=== PATIENT | female | born 1995 | race Caucasian/White ===

== ENCOUNTER 2019-12-13 14:46 | Observation (INO) ==
[2019-12-13] MEDS ORDERED: 0.9 % Sodium Chloride 1,000 ML IVC STA ×2 (14:56→17:18)
[2019-12-13] MEDS ORDERED: Ondansetron 4 MG/2 ML VIAL IVP STA (14:58)
[2019-12-13 15:27] LABS: Eosinophils % 0.1 %; Red Cell Distribution Width 12.2 % (11.5-14.5)
[2019-12-13 15:29] LABS: Basophils # 0.1 K/mcL (0.0-0.2); Basophils % 0.2 %; Hematocrit 47.2 % (35.3-44.9); Hemoglobin 15.5 g/dL (11.5-15.4); Immature Granulocytes % 3.7 % (0-4); Lymphocytes # 2.1 K/mcL (0.6-4.6); Lymphocytes % 7.4 %; Mean Corpuscular HGB Conc 32.8 g/dL (31.6-35.5); Mean Corpuscular Hemoglobin 30.8 pg (28.0-33.3); Mean Corpuscular Volume 93.8 fL (83.0-100.0); Mean Platelet Volume 9.7 fL (9.4-12.4); Monocytes # 1.3 K/mcL (0.0-1.3); Monocytes % 4.7 %; Neutrophils # 23.9 K/mcL (1.6-8.9); Platelet Count 389 K/mcL (140-400); Red Blood Count 5.03 M/mcL (3.82-4.97); Segmented Neutrophils % 83.9 %; White Blood Count 28.5 K/mcL (4.3-11.1)
[2019-12-13 15:44] LABS: VBG HCO3 5 mEq/L (21-27); VBG PCO2 18 mmHg (41-51); VBG PH 7.09 pH Units (7.32-7.42); VBG PO2 116 mmHg (25-50)
[2019-12-13 15:56] LABS: Platelet Estimate Normal (Normal)
[2019-12-13 16:42] LABS: Bilirubin,Urine Negative (Negative); Blood,Urine Trace (Negative); Clarity,Urine Clear (Clear); Color,Urine Colorless (Yellow); Glucose,Urine (UA) >=1000 mg/dL (Normal); Ketones,Urine >150 mg/dL (Negative); Leukocyte Esterase,Urine Negative (Negative); Mucus,Urine Few per lpf (None-Few); Nitrite,Urine Negative (Negative); PH,Urine 5.5 pH Units (5.0-8.0); Protein,Urine Trace mg/dL (Neg-Trace); RBC,Urine 0-3 per hpf (0-3); Specific Gravity,Urine 1.026 (1.010-1.025); Squamous Epithelial Cell,Urine Few per hpf (None-Few); Urobilinogen,Urine Normal (Normal); WBC,Urine 0-3 per hpf (0-3)
[2019-12-13 17:08] LABS: Alanine Aminotransferase 24 Units/L (7-52); Albumin 4.9 g/dL (3.5-5.7); Albumin/Globulin Ratio 1.5 (1.1-2.2); Alkaline Phosphatase 90 Units/L (34-104); Aspartate Amino Transferase 27 Units/L (13-39); BUN/Creatinine Ratio 24 (6-26); Bilirubin,Total 0.5 mg/dL (0.3-1.0); Blood Urea Nitrogen 28 mg/dL (6-20); Calcium 10.4 mg/dL (8.6-10.3); Chloride 95 mEq/L (98-107); Globulin 3.3 g/dL (2.4-3.5); Glucose 579 mg/dL (70-105); Magnesium 2.1 mg/dL (1.6-2.6); Osmolality,Calculated 300 (280-300); Potassium 5.8 mEq/L (3.5-5.1); Sodium 129 mEq/L (136-145); Thyroid Stimulating Hormone 1.025 mcIU/mL (0.340-5.600); Total Protein 8.2 g/dL (6.4-8.9); Troponin I < 0.03 ng/mL (< 0.04); eGFR For African Americans > 60 (> 60); eGFR For Non-African Americans 57 (> 60)
[2019-12-13] MEDS ORDERED: Metoclopramide 10 MG/2 ML VIAL IVP ONE (17:11)
[2019-12-13] MEDS ORDERED: Insulin Human Regular 100 UNIT in 0.9 % Sodium Chloride 100 ML IVC SCH ×2 (17:15→18:01)
[2019-12-13] MEDS ORDERED: Naloxone 0.4 MG/ML INJ IVP PRN ×2 (17:33→18:02)
[2019-12-13] MEDS ORDERED: *HR* Dextrose 50 % in Water (Vial) 50 ML VIAL IVP PRN (17:35)
[2019-12-13] MEDS ORDERED: D5% in 0.45% NACL 1,000 ML IVC PRN (17:35)
[2019-12-13] MEDS ORDERED: Insulin Regular, Human 100 UNIT/ML IV PRN (17:35)
[2019-12-13 17:38] LABS: Carbon Dioxide < 4 mEq/L (23-29)
[2019-12-13] MEDS ORDERED: Ondansetron 4 MG/2 ML VIAL IVP PRN (18:02)
[2019-12-13] MEDS ORDERED: *HR* Promethazine 25 MG/ML VIAL IVP PRN (18:02)
[2019-12-13] MEDS ORDERED: Sodium Bicarbonate 75 MEQ in 0.45 % Sodium Chloride 1,000 ML IVC SCH (18:05)
[2019-12-13 19:35] LABS: BUN/Creatinine Ratio 23 (6-26); Blood Urea Nitrogen 25 mg/dL (6-20); Calcium 9.2 mg/dL (8.6-10.3); Carbon Dioxide 5 mEq/L (23-29); Chloride 103 mEq/L (98-107); Glucose 502 mg/dL (70-105); Osmolality,Calculated 305 (280-300); Sodium 134 mEq/L (136-145); eGFR For African Americans > 60 (> 60); eGFR For Non-African Americans > 60 (> 60)
[2019-12-13] MEDS: 0.9 % Sodium Chloride 1,000 ML IVC SCH ×3 (21:01→23:37)
[2019-12-13] MEDS: Acetaminophen 325 MG TABLET PO PRN (21:01)
[2019-12-13] MEDS: *HR* Heparin 5,000 UNIT/ML VIAL SQ SCH (21:03)
[2019-12-13 23:51] LABS: BUN/Creatinine Ratio 19 (6-26); Blood Urea Nitrogen 17 mg/dL (6-20); Calcium 7.2 mg/dL (8.6-10.3); Carbon Dioxide 7 mEq/L (23-29); Chloride 113 mEq/L (98-107); Glucose 212 mg/dL (70-105); Osmolality,Calculated 290 (280-300); Potassium 4.4 mEq/L (3.5-5.1); Sodium 136 mEq/L (136-145); eGFR For African Americans > 60 (> 60); eGFR For Non-African Americans > 60 (> 60)
[2019-12-14] MEDS: D5% in 0.45% NACL w KCl 20 MEQ/1,000 ML MLS IVC PRN ×4 (00:16→13:34)
[2019-12-14] MEDS: 0.9 % Sodium Chloride 1,000 ML IVC SCH ×5 (00:26→04:34)
[2019-12-14] MEDS: Calcium Gluconate 1gm/50mL 1 GM/50 ML BAG IVPB SCH ×6 (00:38→09:17)
[2019-12-14 04:14] LABS: BUN/Creatinine Ratio 17 (6-26); Blood Urea Nitrogen 13 mg/dL (6-20); Calcium 7.6 mg/dL (8.6-10.3); Carbon Dioxide 9 mEq/L (23-29); Chloride 115 mEq/L (98-107); Glucose 235 mg/dL (70-105); Osmolality,Calculated 286 (280-300); Potassium 4.4 mEq/L (3.5-5.1); Sodium 134 mEq/L (136-145); eGFR For African Americans > 60 (> 60); eGFR For Non-African Americans > 60 (> 60)
[2019-12-14 05:28] LABS: Basophils % 0.2 %; Eosinophils # 0.2 K/mcL (0.0-0.6); Eosinophils % 0.9 %; Hematocrit 32.4 % (35.3-44.9); Immature Granulocytes % 0.8 % (0-4); Lymphocytes # 2.6 K/mcL (0.6-4.6); Lymphocytes % 14.4 %; Mean Corpuscular HGB Conc 33.6 g/dL (31.6-35.5); Mean Corpuscular Hemoglobin 30.8 pg (28.0-33.3); Mean Corpuscular Volume 91.5 fL (83.0-100.0); Mean Platelet Volume 9.2 fL (9.4-12.4); Monocytes % 5.3 %; Platelet Count 250 K/mcL (140-400); Red Blood Count 3.54 M/mcL (3.82-4.97); Red Cell Distribution Width 12.7 % (11.5-14.5); Segmented Neutrophils % 78.4 %; White Blood Count 17.8 K/mcL (4.3-11.1)
[2019-12-14 05:33] LABS: Monocytes # 0.9 K/mcL (0.0-1.3)
[2019-12-14 05:34] LABS: Hemoglobin 10.9 g/dL (11.5-15.4)
[2019-12-14 05:36] LABS: VBG HCO3 14 mEq/L (21-27); VBG PCO2 28 mmHg (41-51); VBG PH 7.31 pH Units (7.32-7.42); VBG PO2 197 mmHg (25-50)
[2019-12-14] MEDS: *HR* Heparin 5,000 UNIT/ML VIAL SQ SCH ×3 (05:36→20:10)
[2019-12-14 05:44] LABS: BUN/Creatinine Ratio 15 (6-26); Blood Urea Nitrogen 11 mg/dL (6-20); Calcium 7.7 mg/dL (8.6-10.3); Carbon Dioxide 13 mEq/L (23-29); Chloride 114 mEq/L (98-107); Glucose 243 mg/dL (70-105); Magnesium 1.5 mg/dL (1.6-2.6); Osmolality,Calculated 289 (280-300); Potassium 3.7 mEq/L (3.5-5.1); Sodium 136 mEq/L (136-145); eGFR For African Americans > 60 (> 60); eGFR For Non-African Americans > 60 (> 60)
[2019-12-14 05:48] LABS: Platelet Estimate Normal (Normal)
[2019-12-14] MEDS ORDERED: Insulin Human Regular 100 UNIT in 0.9 % Sodium Chloride 100 ML IVC SCH (06:15)
[2019-12-14] MEDS: Insulin Human Regular 100 UNIT in 0.9 % Sodium Chloride 100 ML IVC SCH ×3 (06:29→10:18)
[2019-12-14 07:17] LABS: BUN/Creatinine Ratio 13 (6-26); Blood Urea Nitrogen 9 mg/dL (6-20); Calcium 7.5 mg/dL (8.6-10.3); Carbon Dioxide 12 mEq/L (23-29); Chloride 115 mEq/L (98-107); Glucose 211 mg/dL (70-105); Osmolality,Calculated 285 (280-300); Potassium 4.2 mEq/L (3.5-5.1); Sodium 135 mEq/L (136-145); eGFR For African Americans > 60 (> 60); eGFR For Non-African Americans > 60 (> 60)
[2019-12-14 10:44] LABS: BUN/Creatinine Ratio 11 (6-26); Blood Urea Nitrogen 7 mg/dL (6-20); Calcium 8.5 mg/dL (8.6-10.3); Carbon Dioxide 14 mEq/L (23-29); Chloride 117 mEq/L (98-107); Glucose 83 mg/dL (70-105); Osmolality,Calculated 279 (280-300); Potassium 3.4 mEq/L (3.5-5.1); Sodium 136 mEq/L (136-145); eGFR For African Americans > 60 (> 60); eGFR For Non-African Americans > 60 (> 60)
[2019-12-14] MEDS ORDERED: Potassium Chloride Elixir 20 MEQ/15 ML UDC PO ONE (11:24)
[2019-12-14 13:23] LABS: Estimated Average Glucose 283 mg/dl
[2019-12-14] MEDS: Acetaminophen 325 MG TABLET PO PRN (13:59)
[2019-12-14 14:07] LABS: BUN/Creatinine Ratio 9 (6-26); Blood Urea Nitrogen 6 mg/dL (6-20); Calcium 8.8 mg/dL (8.6-10.3); Carbon Dioxide 13 mEq/L (23-29); Chloride 114 mEq/L (98-107); Glucose 194 mg/dL (70-105); Osmolality,Calculated 285 (280-300); Potassium 4.7 mEq/L (3.5-5.1); Sodium 136 mEq/L (136-145); eGFR For African Americans > 60 (> 60); eGFR For Non-African Americans > 60 (> 60)
[2019-12-14] MEDS: Insulin DETEMIR 100 UNIT/ML X5UNITS SQ SCH ×2 (15:07→20:10)
[2019-12-14] MEDS: Insulin DETEMIR 100 UNIT/ML X5UNITS SQ ONE (15:29)
[2019-12-14] MEDS: Insulin LISPRO 300 UNITS/3 ML VIAL SQ SCH (16:36)
[2019-12-14 19:17] LABS: Carbon Dioxide 13 mEq/L (23-29); Chloride 119 mEq/L (98-107); Potassium 5.3 mEq/L (3.5-5.1); Sodium 134 mEq/L (136-145)
[2019-12-14 19:36] LABS: BUN/Creatinine Ratio 9 (6-26); Blood Urea Nitrogen 6 mg/dL (6-20); Calcium 8.5 mg/dL (8.6-10.3); Glucose 211 mg/dL (70-105); Osmolality,Calculated 282 (280-300); eGFR For African Americans > 60 (> 60); eGFR For Non-African Americans > 60 (> 60)
[2019-12-14] MEDS ORDERED: Insulin LISPRO 300 UNITS/3 ML VIAL SQ SCH (21:00)
[2019-12-15 00:54] LABS: VBG HCO3 17 mEq/L (21-27); VBG PCO2 20 mmHg (41-51); VBG PH 7.53 pH Units (7.32-7.42); VBG PO2 215 mmHg (25-50)
[2019-12-15 00:59] LABS: Basophils % 0.1 %; Eosinophils % 0.1 %; Hemoglobin 11.1 g/dL (11.5-15.4); Immature Granulocytes % 0.5 % (0-4); Lymphocytes # 3.2 K/mcL (0.6-4.6); Lymphocytes % 27.8 %; Mean Corpuscular HGB Conc 33.6 g/dL (31.6-35.5); Mean Corpuscular Volume 89.2 fL (83.0-100.0); Mean Platelet Volume 9.8 fL (9.4-12.4); Monocytes # 0.7 K/mcL (0.0-1.3); Neutrophils # 7.6 K/mcL (1.6-8.9); Platelet Count 195 K/mcL (140-400); Red Cell Distribution Width 13.2 % (11.5-14.5); Segmented Neutrophils % 65.5 %; White Blood Count 11.5 K/mcL (4.3-11.1)
[2019-12-15 01:06] LABS: BUN/Creatinine Ratio 12 (6-26); Blood Urea Nitrogen 7 mg/dL (6-20); Calcium 8.3 mg/dL (8.6-10.3); Carbon Dioxide 15 mEq/L (23-29); Chloride 114 mEq/L (98-107); Glucose 146 mg/dL (70-105); Magnesium 1.5 mg/dL (1.6-2.6); Osmolality,Calculated 283 (280-300); Sodium 136 mEq/L (136-145); eGFR For African Americans > 60 (> 60); eGFR For Non-African Americans > 60 (> 60)
[2019-12-15] MEDS: Acetaminophen 325 MG TABLET PO PRN (04:12)
[2019-12-15] MEDS: *HR* Heparin 5,000 UNIT/ML VIAL SQ SCH (05:33)
[2019-12-15 07:11] VITALS: BP 124/70
[2019-12-15] MEDS: Insulin LISPRO 300 UNITS/3 ML VIAL SQ SCH (07:49)
[2019-12-15 08:54] LABS: BUN/Creatinine Ratio 10 (6-26); Blood Urea Nitrogen 6 mg/dL (6-20); Calcium 8.6 mg/dL (8.6-10.3); Carbon Dioxide 21 mEq/L (23-29); Chloride 111 mEq/L (98-107); Glucose 91 mg/dL (70-105); Osmolality,Calculated 283 (280-300); Potassium 3.6 mEq/L (3.5-5.1); Sodium 138 mEq/L (136-145); eGFR For African Americans > 60 (> 60); eGFR For Non-African Americans > 60 (> 60)
[2019-12-15] MEDS ORDERED: Insulin DETEMIR 100 UNIT/ML X5UNITS SQ SCH (09:00)
== END 2019-12-15 10:10 | disposition home or self-care (01) ==
LOC: EMEROOARM 14:46 → 2NNU 14:46 → SUATTDRO 17:36 → 2NNU 18:37
PROVIDERS: ADMIT Pharmacist; ATTEND Family Medicine